=== PATIENT | female | born 1990 | race Caucasian/White ===

== ENCOUNTER 2016-09-24 17:31 | Emergency (ER) | payer OTHER ==
[2016-09-24 17:50] VITALS: RESP 18; O2SAT 98
[2016-09-24 18:05] VITALS: BMI 28.3
--- NOTE | 2016-09-24 18:36 | C.PDOC ---
History Of Present Illness 26 y/o female presents to the ED with complains of sore throat and nasal congestion which onset today. Pt states she had a scratchy throat last week which resolved but later returned. Pt also reports feeling febrile, took aleve [employer]. Denies headache, neck pain, SOB or any other complaints. Time Seen by Provider: 09/24/16 18:08 Chief Complaint (Nursing): ENT Problem History Per: Patient History/Exam Limitations: None Onset/Duration Of Symptoms: Hrs Current Symptoms Are (Timing): Still Present Symptoms Have Been: Continuous Severity: Mild Anticoagulant/Antiplatlet Use?: No Past Medical History Reviewed: Historical Data, Nursing Documentation, Vital Signs Vital Signs: Last Vital Signs Temp 98.3 F 09/24/16 18:38 Pulse 75 09/24/16 18:38 Resp 18 09/24/16 18:38 BP 118/69 09/24/16 18:38 Pulse Ox 98 09/24/16 18:38 Family History: States: Unknown Family Hx - Social History Hx Tobacco Use: Yes Hx Alcohol Use: Yes Hx Substance Use: No - Immunization History Hx Tetanus Toxoid Vaccination: No Hx Influenza Vaccination: No Hx Pneumococcal Vaccination: No Review Of Systems Except As Marked, All Systems Reviewed And Found Negative. ENT: Positive for: Nose Congestion, Throat Pain Respiratory: Negative for: Shortness of Breath Gastrointestinal: Negative for: Vomiting Musculoskeletal: Negative for: Neck Pain Neurological: Negative for: Headache Physical Exam - Physical Exam Appears: Non-toxic, No Acute Distress Skin: Warm, Dry, No Rash Head: Atraumatic, Normacephalic Ear(s): Bilateral: Normal Nose: Other (boggy nares) Oral Mucosa: Moist Throat: Erythema (mild), No Exudate, Other (large tonsils) Neck: Normal, Normal ROM, Supple Chest: Symmetrical Cardiovascular: Rhythm Regular, No Murmur Respiratory: Normal Breath Sounds, No Rales, No Rhonchi, No Wheezing Extremity: Bilateral: Atraumatic Neurological/Psych: Oriented x3, Normal Speech ED Course And Treatment O2 Sat by Pulse Oximetry: 98 (room air) Pulse Ox Interpretation: Normal Medical Decision Making Medical Decision Making: Rapid strep negative. Disposition Counseled Patient/Family Regarding: Studies Performed, Diagnosis, Need For Followup, Rx Given - Disposition Disposition: HOME/ ROUTINE Disposition Time: 18:34 Condition: STABLE Prescriptions: Ibuprofen [Motrin] 1 tab PO TID PRN #30 tab PRN Reason: Pain Instructions: Pharyngitis (ED) Forms: General Discharge Instructions, [facility] (Vietnamese) - POA Present On Arrival: None - Clinical Impression Clinical Impression: Pharyngitis - Scribe Statement The provider has reviewed the documentation as recorded by the Scribe Yandel Mathews Provider Attestation: All medical record entries made by the Scribe were at my direction and personally dictated by me. I have reviewed the chart and agree that the record accurately reflects my personal performance of the history, physical exam, medical decision making, and the department course for this patient. I have also personally directed, reviewed, and agree with the discharge instructions and disposition.
[2016-09-24 18:39] VITALS: BP 118/69; PULSE 75; TEMP 98.3
== END 2016-09-24 18:39 | disposition home or self-care (01) ==
LOC: C.ER 17:31
DX: J02.9 Acute pharyngitis, unspecified (principal)